=== PATIENT | female | born 1990 | race Hispanic/Latino ===

== ENCOUNTER 2018-01-16 04:56 | Inpatient (IN) | payer BC ==
[2018-01-15 11:07] LABS: RPR Titer ND
[2018-01-15 11:12] LABS: Urine Appearance CLOUDY; Urine Bilirubin NEGATIVE (NEG); Urine Blood NEGATIVE (NEG); Urine Color YELLOW; Urine Glucose NEGATIVE (NEG); Urine Protein NEGATIVE (NEG); Urine Specific Gravity 1.015 (1.005-1.030); Urine Urobilinogen 0.2 mg/dL (0.2-1.0)
[2018-01-15 11:34] LABS: Urine Bacteria >50 /HPF (<20); Urine Culture Reflex Order NOT NEEDED; Urine RBC <5 /HPF (NONE SEEN)
--- NOTE | 2018-01-15 11:41 | PREOPHP ---
Date of Admission: 01/16/2018 History Of Present Illness: Ms. Encarnacion is a 27-year-old female, 2, para 1-0-0-1, now at approximately 39+ weeks gestation. She has been followed by me during this with only si gnificant issue of prior section for failure to progress in labor. She will undergo repeat section because of suspected CPD and prior section. Past Medical History: Please see record. Family History: Please see record. Review of Systems: She reports no recent cough, cold, fever, or chills. She denies recent nausea, vomiting. She denies any breast lumps. She denies any bowel or bladder issues. Infant has been active. She denies any vaginal bleeding or spotting. Physical Examination: General: Reveals female, in no apparent distress. Neck: Supple without adenopathy or thyromegaly. Lungs: Clear. Cardiac: Regular rate and rhythm without murmurs. Breasts: Not examined. Abdomen: Shows 38 cm fundal height, vertex presentation. heart tones heard in the low abdomen . Vertex is above the pubic bone and easily displaced. Extremities: Trace to 1+ lower extremity edema bilaterally. Impression: A 39+ week , prior section, probable cephalopelvic disproportion. Plan: The patient will undergo repeat section. She has signed operative permit in my prese nce. IVETH/ANDREW Voice ID: [id number]
[2018-01-15 11:52] LABS: Absolute Lymphocytes (CBC) 1.6 K/uL (0.7-4.9); Absolute Monocytes 0.9 K/uL (0.1-1.3); Absolute Neutrophil 9.3 K/uL (1.8-8.0); Basophils % 0.4 % (0-1.3); Eosinophils % 1.4 % (0-4.4); Hematocrit 36.1 % (36.0-45.0); Lymphocytes % 13.6 % (15.3-44.8); MCH 30.3 pg (27.0-35.0); MCV 86.9 fL (80-100); MPV 9.7 fL (7.6-11.3); Monocytes % 7.4 % (3.3-12.3); RBC Red Blood Cell Count 4.15 M/uL (3.86-4.86)
[2018-01-15 23:06] LABS: RPR (Rapid Plasma Reagin) NON-REACT (NON-REACT)
[~2018-01-16 04:56] MED LIST: CEFAZOLIN/SWI 2gm 2 GM/20 ML SYR IV SCH
[2018-01-16] MEDS ORDERED: Ringers Lactate 1,000 ML IV PRN (05:50)
[2018-01-16] MEDS ORDERED: CEFAZOLIN 2 GM in NA CHLORIDE 0.9% 100 ML IVPB ONE (05:52)
[2018-01-16] MEDS ORDERED: Ringers Lactate 1,000 ML IV SCH (06:00)
[2018-01-16 06:36] VITALS: BMI 42.0
[2018-01-16] MEDS ORDERED: METOCLOPRAMIDE 10 MG/2mL INJ ONE (06:39)
[2018-01-16] MEDS ORDERED: NA CIT/CITRIC AC 30 ML ORAL UDC ONE (06:39)
[2018-01-16] MEDS ORDERED: CEFAZOLIN/SWI 2gm 2 GM/20 ML SYR ONE (06:40)
[2018-01-16] MEDS ORDERED: EPHEDRINE SULF 50 MG/ML SYR ONE (06:47)
[2018-01-16] MEDS ORDERED: MORPHINE SULFATE/PF 1 MG/ML (10 ML AMP) ONE (06:47)
[2018-01-16] MEDS ORDERED: NS 0.9% VIAL 10 ML ONE (06:48)
[2018-01-16] MEDS ORDERED: OXYTOCIN 10 UNIT/ML ML IV ONE ×2 (06:48→08:05)
[2018-01-16] MEDS ORDERED: NA CIT/CITRIC AC 30 ML ORAL UDC PO ONE (07:05)
[2018-01-16] MEDS ORDERED: CARBOPROST TROME 250 MCG/ML IM ONE (07:11)
[2018-01-16] MEDS ORDERED: METHYLERGONOVINE 0.2MG/ML AMP IM ONE (07:11)
[2018-01-16] MEDS ORDERED: Phenylephrine HCl 10 MG/ML 1 ML VIAL ONE (07:23)
[2018-01-16] MEDS ORDERED: NS 0.9% VIAL 20 ML ONE (07:23)
[2018-01-16] MEDS ORDERED: ONDANSETRON HCL 40 MG/20 ML VIAL ONE (07:34)
[2018-01-16] MEDS ORDERED: MIDAZOLAM HCL 2 MG/2 ML INJ ONE ×2 (07:40→07:54)
[2018-01-16] MEDS ORDERED: METOCLOPRAMIDE 10 MG/2mL INJ IV SCH (08:00)
[2018-01-16] MEDS ORDERED: KETOROLAC 30 MG/ML INJ IV PRN (08:28)
[2018-01-16] MEDS ORDERED: METHYLERGONOVINE 0.2 MG TAB PO PRN (08:28)
[2018-01-16] MEDS ORDERED: ONDANSETRON 4 MG (ODT) TAB PO PRN (08:28)
[2018-01-16] MEDS ORDERED: METHYLERGONOVINE 0.2MG/ML AMP IM PRN (08:28)
[2018-01-16] MEDS ORDERED: Oxycodone HCl/Acetaminophen 1 TAB TAB PO PRN (08:28)
[2018-01-16] MEDS ORDERED: CARBOPROST TROME 250 MCG/ML IM PRN (08:28)
--- NOTE | 2018-01-16 08:31 | P.BOP ---
Preoperative diagnosis: 39+ week , prior Postoperative diagnosis: same, viable male infant, transverse lie Primary procedure: , delivery male Disability Case Manager: Patty Cantrell Estimated blood loss: 1000 Specimen: placenta Anesthesia: Spinal Complications: None Drain(s): Urinary catheter Transferred to: Other (278) Condition: Good
[2018-01-16] MEDS ORDERED: OXYTOCIN/LR 20 UNIT/1,000 ML BAG IV SCH (09:00)
[2018-01-16] MEDS ORDERED: Ringers Lactate 2,000 ML IV ONE (09:21)
[2018-01-16] MEDS ORDERED: Ringers Lactate 1,000 ML IV ONE (18:06)
--- NOTE | 2018-01-16 18:24 | OP ---
Surgeon: Sami Pelletier MD Anesthesiologist: Carol Savage CRNA and Dr. Adrian Bangura. Preoperative Diagnosis: Prior section, unstable lie. Postoperative Diagnosis: Prior section, delivery of viable male infant in transverse lie. Procedures: Spinal block anesthesia, repeat section, delivery of viable male . Description Of Procedure: After satisfactory level of spinal block anesthesia, the patient was prepp ed and draped in the usual fashion for abdominal surgery with Atkins catheter in place. She received 2 g of Ancef for antibiotic prophylaxis. A Pfannenstiel skin incision was made. This was carried do wn to the fascia. The fascia was incised with a combination of sharp and blunt dissection. They wer e from the underlying rectus muscles. The peritoneum was identified and incised. A bladde r flap was low. A low-transverse uterine incision was made. noted to be transverse lie, head vertex to the patient's left side. This was directed to the incision with the aid of short handled Piper forceps. An 8-pound male was delivered, 8 and 9. Cord was clamped, cut, and the placed in a warmer. Cord blood was obtained. The placenta was manually removed. The uterus was then exteriorized. The uterus was closed in 2 layers utilizing Vicryl suture in a running locked fashion. A second layer used to imbricate the first. Mucosal edges were reapproximated utilizing a running suture of 3-0 Vicryl. The uterus was returned to the peritoneal cavity, which was cleaned o f amniotic fluid, debris, and blood clot. The rectus muscles were approximated in the midline with s imple sutures of 0 Vicryl to close the peritoneum. The fascia was closed with running suture of #1 V icryl from either margin to the middle. Subcutaneous tissue was closed with simple sutures of 3-0 Vi cryl, subdermal suture of 3-0 Vicryl, and a subcuticular suture of 4-0 Monocryl. Estimated total blo od loss was 1000 cc. The patient was taken to the recovery room in satisfactory condition with Atkins catheter in place and SCDs in place. Emergency Vehicle Operations Instructor Surgeon: Caren Harrison/ANDREW Voice ID: [id number] Report ID: [id number]
[2018-01-17] MEDS: Oxycodone HCl/Acetaminophen 1 TAB TAB PO PRN ×2 (05:15→11:47)
[2018-01-17 05:27] LABS: Absolute Lymphocytes (CBC) 1.9 K/uL (0.7-4.9); Absolute Monocytes 1.3 K/uL (0.1-1.3); Absolute Neutrophil 14.7 K/uL (1.8-8.0); Basophils % 0.2 % (0-1.3); Eosinophils % 0.5 % (0-4.4); Hematocrit 30.1 % (36.0-45.0); Lymphocytes % 10.7 % (15.3-44.8); MCH 29.9 pg (27.0-35.0); MCV 87.4 fL (80-100); MPV 9.1 fL (7.6-11.3); Monocytes % 7.1 % (3.3-12.3); RBC Red Blood Cell Count 3.45 M/uL (3.86-4.86)
--- NOTE | 2018-01-17 07:37 | P.PN ---
Date of Service: 01/17/18 S-No complaints O-Afeb, vs stable, 18K wbc on p/o cbc, 06/10 h/h. Bandage dry, abdomen not distended A-Satisfactory, P- ambulate, advance diet, IV and story, d/c
[2018-01-17] MEDS ORDERED: Ringers Lactate 2,000 ML IV ONE (08:09)
[2018-01-17] MEDS: IBUPROFEN 400 MG TAB PO PRN (16:11)
[2018-01-18] MEDS: IBUPROFEN 400 MG TAB PO PRN (07:58)
[2018-01-18 08:53] VITALS: BP 130/69; TEMP 99.1
--- NOTE | 2018-01-20 09:50 | DS ---
Date of Discharge: 01/18/2018 Hospital Discharge Diagnosis: Prior section, unstable/transverse lie. Repeat sect ion delivery of viable male . Complications: None. Procedures: Spinal block anesthesia. Repeat section. Delivery of viable male infant in tr ansverse lie. Hospital Course: The patient is a 27-year-old, female, 2, para 1-0-0-1, at approxim ately 39+ weeks gestation, admitted for repeat section with unstable lie and noted to be tra nsverse at time of surgery. She delivered 8 pounds 11 ounce male infant, 8 and 9, by repeat ce sarean section with spinal block anesthesia. She was dismissed on the second postoperative day, ambu latory on a select diet with routine post section activity restrictions. Lab work included an admission hemoglobin and hematocrit of 12.6 and 36.1, dismissal of 10.3 and 30.1. She had a nonre active RPR. She is O-positive blood type. Urine specimen was suspicious for a bladder infection, bu t she did receive prophylaxis at the time of surgery with Ancef, which should be sufficient to treat possible low-grade infection. We will await results of final culture. She was dismissed to continue taking her iron and vitamins with a prescription for Tylenol No. 3, #20 for pain relief, to be seen back in my office in 1 week for incision check with usual post section activity res trictions. IVETH/ANDREW Voice ID: [id number] Report ID: [id number]
== END 2018-01-18 11:00 | disposition home or self-care (01) | DRG 766 ==
LOC: 2ND-WC 04:56
PROVIDERS: ADMIT Specialist; ATTEND Specialist
PROC: 10D00Z1 Extraction of Products of Conception, Low, Open Approach (ICD-10-PCS; principal; 2018-01-16 07:30)
DX: O34.211 Maternal care for low transverse scar from previous cesarean delivery (principal); O32.2XX0 Maternal care for transverse and oblique lie, not applicable or unspecified; Z3A.39 39 weeks gestation of pregnancy; Z37.0 Single live birth
CPT/HCPCS: 36415; 81001; 85025; 86592; 86850; 86900; 86901; 87086; 87088; 88307; J0690; J2210; J2250; J2370; J2405; J2590; J2765

== ENCOUNTER 2023-01-18 22:30 | Emergency (ER) | payer OTHER ==
--- OUTSIDE RECORDS SUMMARY | 2023-01-18 22:38 | XMS REPORT | Continuity of Care Document ---
:1990 Author Organization [facility] t Address [address] [place] [address] Care Team Providers Name Role Phone JAVIER LOPEZ JR Primary Care Physician Unavailable HAILEY DEMPSEY Attending Clinician Unavailable Pob, Adc Lab Main Attending Clinician Unavailable Hailey Dempsey MD Attending Clinician Doctor Unassigned, [place] Attending Clinician Unavailable STEVEN COLLAZO Attending Clinician Unavailable Steven Collazo DO Attending Clinician Scar Acosta MD Attending Clinician SCAR ACOSTA Attending Clinician Unavailable RAJIV PERRIN Attending Clinician Unavailable RAJIV PERRIN Attending Clinician Unavailable Payers Payer Name Policy Type Policy Number Effective Date Expiration Date S ource [employer] [id number] 2022 00:00:00 [facility] - [id number] 2021 OUT OF STATE 00:00:00 Problems Condition Condition Condition Status Onset Resolution Last Treating Co mments Source Name Details Category Date Date Treatment Clinician Date Morbid Morbid Disease Active Univers obesity obesity 3-10 [place] mass index 00 [place] dical of of Branch 40.0-49.9 40.0-49.9 Hemorrhoid Hemorrhoid Disease Active U nivers s s 8-09 ity of 00:00: [place] 00 Medical Branch Irritable Irritable Disease Active Uni vers bowel bowel 8-09 ity of syndrome syndrome 00:00: [place] with with 00 Medical constipati constipati Br anch on on Seasonal Seasonal Disease Active Unive rs allergies allergies 03-20 ity of 00:00: [place] 00 Medical [place] Allergies, Adverse Reactions, Alerts Allergy Allergy Status Severity Reaction(s) Onset Inactive Treating Comm ents Source Name Type Date Date Clinician NO KNOWN Drug Active [facility] ALLERGIE Class ity of S [facility] Social History Social Habit Start Date Stop Date Quantity Comments Source ASSERTION [facility] Exposure to 2022-10-09 2022-10-19 Not sure [facility] SARS-CoV-2 00:00:00 14:17:00 [facility] (event) [place] Alcohol intake 2022-10-19 2022-10-19 Ex-drinker [facility] 00:00:00 00:00:00 (finding) [facility] Tobacco use and 2022-03-20 2022-03-20 Smokeless tobacco Un iversity of exposure 00:00:00 00:00:00 non-user [facility] Sex Ass[birth year] At [birth year] Universit y of 00:00:00 00:00:00 [facility] Smoking Status Start Date Stop Date Source Never smoked tobacco [facility] Medications Ordered Filled Start Stop Current Ordering Indication Dosage Frequency Signature Comments Components Source Medication Medication Date Date Medication? Clinician (SIG) Name Name benzonatate 2021-08 Yes [id number] 100mg Take 1 Univers 100 mg 2-19 capsule by ity of capsule 00:00: mouth 3 00 (three) Medical times Branch daily as needed for Cough. methylPREDN 2021-08 Yes [id number] Take by Univers ISolone 2-19 mouth ity of (MEDROL, 00:00: SEE-INSTRU Daniel as CHIOMA,) 4 mg 00 CTIONS. Medica l tablets follow Branch package directions benzonatate 2021-08 Yes [id number] 100mg Take 1 Univers 100 mg 2-19 capsule by ity of capsule 00:00: mouth 3 00 (three) Medical times Branch daily as needed for Cough. methylPREDN 2021-08 Yes [id number] Take by Univers ISolone 2-19 mouth ity of (MEDROL, 00:00: SEE-INSTRU Daniel as CHIOMA,) 4 mg 00 CTIONS. Medica l tablets follow Branch package directions benzonatate 2021-08 Yes [id number] 100mg Take 1 Univers 100 mg 2-19 capsule by ity of capsule 00:00: mouth 3 [place] 00 (three) Medical times Branch daily as needed for Cough. methylPREDN 2021-08 Yes [id number] Take by Univers ISolone 2-19 mouth ity of (MEDROL, 00:00: SEE-INSTRU Daniel as CHIOMA,) 4 mg 00 CTIONS. Medica l tablets follow Branch package directions benzonatate 2021-08 Yes [id number] 100mg Take 1 Univers 100 mg 2-19 capsule by ity of capsule 00:00: mouth 3 [place] 00 (three) Medical times Branch daily as needed for Cough. methylPREDN 2021-08 Yes [id number] Take by Univers ISolone 2-19 mouth ity of (MEDROL, 00:00: SEE-INSTRU Daniel as CHIOMA,) 4 mg 00 CTIONS. Medica l tablets follow Branch package directions benzonatate 2021-08 Yes [id number] 100mg Take 1 Univers 100 mg 2-19 capsule by ity of capsule 00:00: mouth 3 [place] 00 (three) Medical times Branch daily as needed for Cough. methylPREDN 2021-08 Yes [id number] Take by Univers ISolone 2-19 mouth ity of (MEDROL, 00:00: SEE-INSTRU Daniel as CHIOMA,) 4 mg 00 CTIONS. Medica l tablets follow Branch package directions benzonatate 2021-08 Yes [id number] 100mg Take 1 Univers 100 mg 2-19 capsule by ity of capsule 00:00: mouth 3 [place] 00 (three) Medical times Branch daily as needed for Cough. methylPREDN 2021-08 Yes [id number] Take by Univers ISolone 2-19 mouth ity of (MEDROL, 00:00: SEE-INSTRU Daniel as CHIOMA,) 4 mg 00 CTIONS. Medica l tablets follow Branch package directions cetirizine Yes 10mg Take 1 Unive rs 10 mg 6-08 tablet by ity of tablet 00:00: mouth in [place] 00 the Medical morning. Branch cetirizine 2021-0 Yes 10mg Take 1 Unive rs 10 mg 6-08 tablet by ity of tablet 00:00: mouth in [place] 00 the Medical morning. Branch cetirizine 0 Yes 10mg Take 1 Unive rs 10 mg 6-08 tablet by ity of tablet 00:00: mouth in [place] 00 the Medical morning. Branch cetirizine 2021-0 Yes 10mg Take 10 mg U nivers 10 mg 6-08 by mouth ity of tablet 00:00: in the [place] morning. Medical Branch cetirizine 2021-0 Yes 10mg Take 10 mg U nivers 10 mg 6-08 by mouth ity of tablet 00:00: in the [place] morning. Medical Branch cetirizine 2021-0 Yes 10mg Take 10 mg U nivers 10 mg 6-08 by mouth ity of tablet 00:00: in the [place] morning. Medical Branch cetirizine 2021-0 Yes 10mg Take 10 mg U nivers 10 mg 6-08 by mouth ity of tablet 00:00: in the [place] morning. Medical Branch cetirizine 2021-0 Yes 10mg Take 10 mg U nivers 10 mg 6-08 by mouth ity of tablet 00:00: in the [place] morning. Medical Branch cetirizine 2021-0 Yes 10mg Take 1 Unive rs 10 mg 6-08 tablet by ity of tablet 00:00: mouth in [place] 00 the Medical morning. Branch Vital Signs Vital Name Observation Time Observation Value Comments Source Systolic blood 2022-10-19 21:03:00 106 mm[Hg] Univer sity of pressure [facility] Diastolic blood 2022-10-19 21:03:00 72 mm[Hg] Unive rsity of pressure [facility] Heart rate 2022-10-19 21:03:00 74 /min [facility] Body temperature 2022-10-19 21:03:00 36.78 Nery [facility] Respiratory rate 2022-10-19 21:03:00 18 /min [facility] Body height 2022-10-19 21:03:[address] [facility] Body weight 2022-10-19 21:03:[address] [facility] BMI 2022-10-19 21:03:00 40.47 kg/m2 [facility] Body temperature 2022-07-30 08:15:00 37.5 Nery [facility] Respiratory rate 2022-07-30 08:15:00 18 /min Univ ersity of [place] [facility] [place] Body height 2022-07-30 08:15:00 154.9 cm Universi ty of [place] [facility] [place] Body weight 2022-07-30 08:15:00 104.327 kg Universi ty of [place] [facility] BMI 2022-07-30 08:15:00 43.46 kg/m2 Universi ty of [facility] Oxygen saturation in 2022-07-30 08:15:00 100 /min University of Arterial blood by [facility] Pulse oximetry Branch Systolic blood 2022-07-30 08:15:00 132 mm[Hg] Univer sity of pressure [place] [facility] [place] Diastolic blood 2022-07-30 08:15:00 81 mm[Hg] Unive rsity of pressure [facility] Heart rate 2022-07-30 08:15:00 84 /min Universi ty of [place] [facility] [place] Systolic blood 2022-03-20 19:03:00 113 mm[Hg] Univer sity of pressure [place] [facility] [place] Diastolic blood 2022-03-20 19:03:00 71 mm[Hg] Unive rsity of pressure [place] [facility] [place] Heart rate 2022-03-20 19:03:00 77 /min Universi ty of [place] [facility] [place] Respiratory rate 2022-03-20 19:03:00 17 /min [facility] [place] [facility] [place] Body height 2022-03-20 19:03:00 157.5 cm Universi ty of [place] [facility] [place] Body weight 2022-03-20 19:03:00 101.209 kg Universi ty of [place] [facility] [place] BMI 2022-03-20 19:03:00 40.81 kg/m2 Universi ty of [place] [facility] [place] Oxygen saturation in 2022-03-20 19:03:00 98 /min University of Arterial blood by [facility] [place] [facility] Pulse oximetry Branch Procedures Procedure Date / Time Performing Clinician Source Performed US OB TRANSVAGINAL 2022-10-20 03:39:41 Hailey Dempsey y [facility] ASSIGNMENT OF BENEFITS 2022-10-19 20:20:57 Doctor Unassigned, No [facility] POCT TEST 2022-10-19 00:00:00 AdHailey marquis [facility] ty [facility] RAPID STREP SCREEN FOR 2022-07-30 08:24:00 Steven Collazo [facility] [place] GROUP A Medical Branch RAPID INFLUENZA A/B 2022-07-30 08:24:00 Steven Collazo ty of [facility] COVID-19 (ID NOW RAPID 2022-07-30 08:24:00 Steven [facility] [place] [place] TEST[facility]) Medical Branch NOTICE OF PRIVACY 2022-07-30 08:12:45 Doctor Unassigned, No Univ [facility] PRACTICES Name Medical Branch CONSENT/REFUSAL FOR 2022-07-30 08:12:02 Doctor Unassigned, No [facility] Name [facility] EXTERNAL PROVIDER 2022-03-21 05:01:00 Doctor Unassigned, No Univ [facility] RECORDS Name [facility] Encounters Start End Encounter Admission Attending Care Care Encounter Source Date/Time Date/Time Type Type Clinicians Facility Department ID 2023-01-17 2023-01-17 Outpatient R AD, [facility] [id number] Univers 15:45:00 15:45:00 HAILEY aaron [facility] 2022-11-09 2022-11-09 Employee Relations Administrator Carlos, Adc Lab Main [facility] 1.2.8 [id number] [id number] Univers 17:00:00 17:15:00 Visit AdHailey marquis 350.1.13.10 ity [facility] 4.2.7.2.686 [place] [id number] [facility] [address] [facility] 2022-11-09 2022-11-09 Outpatient R AD, [facility] [id number] Univers 17:00:00 17:00:00 HAILEY agnieszka [facility] 2022-10-22 2022-10-22 Telephone Adum, [facility] [id number] Univers 00:00:00 00:00:00 [id number].2.[place] [id number] Ut dical [facility] [address] [facility] 2022-10-19 2022-10-19 Employee Relations Administrator Carlos, Adc Lab Main [facility] 1.2.8 40.114 [id number] Univers 16:45:00 17:00:00 Visit Adum, Hailey IVERSON [id number] ity of [place] 4[place]2.7.2.[place] [id number] Me dical NAL [address] [facility] 2022-10-19 2022-10-19 Outpatient [facility] [id number] Univers 14:30:00 16:28:02 HAILEY itbrennan [facility] 2022-10-19 2022-10-19 [facility] [id number] Univers 14:30:00 16:28:02 Hailey SLAUGHTERCHRIS [id number] ity of Visit [place] 4[place]2.7.2.686 [place] [id number] Ut dical NAL [address] [facility] 2022-10-19 2022-10-19 Orders Doctor HENRIK [id number] Univers 00:00:00 00:00:00 Only Unassigned, RILEY [id number] ity of [place] [facility] 4.2.7.2.686 Daniel as [id number] [address] 2022-07-30 2022-07-30 Emergency [facility] [id number] Univers 02:24:00 03:43:00 STEVEN aaron [facility] 2022-07-30 2022-07-30 [facility] [id number] Univers 02:24:00 03:43:00 Steven IVERSON 350.1.13.10 i ty of [place]2.7.2.[place] [id number] [facility] [address] [place] 2022-03-21 2022-03-21 Orders Doctor HENRIK 1.2.840.114 [id number] Univers 00:00:00 00:00:00 Only Unassigned, RILEY [id number] ity of [place] [facility] 4.2.7.2.686 Daniel as [id number] [facility] [address] [place] 2022-03-20 2022-03-20 Office Dave [facility] [id number] [facility] 14:00:00 14:44:14 Visit Scar IVERSON 350.1.13.10 i ty [facility] 4.2.7.2.686 Danielradha hobbs ASAEL [id number] Ut dical [address] 2022-03-20 2022-03-20 [facility] [id number] Univers 14:00:00 14:44:14 SCAR [facility] 2022-03-20 2022-03-20 [facility] [id number] [facility] 14:00:00 14:00:00 SCAR [facility] 2022-02-19 2022-02-19 Outpatient R RAJIV PERRIN [facility] B [id number] [facility] 16:30:00 16:30:00 RAJIV PERRIN [facility] Results Test Description Test Time Test Comments Results Result Comments Source POCT TEST 2022-10-19 22:24:00 Test Item Value Reference Range Interpretation Comme nts POCT PREG (test code = 1605) Positive On board controls acceptable with C Line (test code = 3574) Yes POCT PREG LOT # (test code = 3575) POCT PREG TEST DATE (test code = 3576) [facility]
--- NOTE | 2023-01-19 01:15 | ER ---
Nurse's Notes [facility] Name: Silke Encarnacion Age: 32 yrs Sex: Female : 1990 Arrival Date: 01/18/2023 Time: 22:30 Bed 9 Private MD: Bernardo Herron Diagnosis: Chest pain, unspecified Presentation: 01/18 22:35 Chief complaint: Patient states: left side chest pain of 4,onset 1300 today while at 1 work. Patient stated did have some chest discomfort last week, resolved and came back today. Patient stated was diagnosed with anxiety a few days ago per Dr. Herron and was started on an anxiety medication. Coronavirus screen: Vaccine status: Patient reports receiving the 2nd dose of the covid vaccine. [facility] Client denies travel out of the [place] in the last 14 days. At this time, the client does not indicate any symptoms associated with coronavirus-19. Ebola Screen: Patient negative for fever greater than or equal to 101.5 degrees Fahrenheit, and additional compatible Ebola Virus Disease symptoms. Initial Sepsis Screen: Does the patient meet any 2 criteria? No. Patient's initial sepsis screen is negative. Does the patient have a suspected source of infection? No. Patient's initial sepsis screen is negative. Risk Assessment: Do you want to hurt yourself or someone else? Patient reports no desire to harm self or others. 22:35 Method Of Arrival: Ambulatory pf1 22:35 Acuity: EUGENIA 3 pf1 Historical: - Allergies: 22:50 almonds; pf1 22:50 Wheat/glutens; pf1 - Immunization history:: Adult Immunizations up to date. - Social history:: Smoking status: Patient denies any tobacco usage or history of. Patient/guardian denies using alcohol, street drugs. Screenin:51 [facility] ED Fall Risk Assessment (Adult) History of falling in the last 3 months, pf1 including since admission No falls in past 3 months (0 pts) Confusion or Disorientation No (0 pts) Intoxicated or Sedated No (0 pts) Impaired Gait No (0 pts) Mobility Assist Device Used No (0 pt) Altered Elimination No (0 pt) Score/Fall Risk Level 0 - 2 = Low Risk Oriented to surroundings, Maintained a safe environment, Educated pt \T\ family on fall prevention, incl call for assistance when getting out of bed, Assessed \T\ reinforced patient's understanding of fall precautions, Provided non-skid footwear, Hourly rounding (assess needs \T\ fall precautionary measures) done, Used ambulatory aids as needed (educated on \T\ assisted with), Used gait belt as appropriate. 22:51 Abuse screen: Denies threats or abuse. Nutritional screening: No deficits noted. pf1 Tuberculosis screening: No symptoms or risk factors identified. Assessment: 22:51 General: Appears in no apparent distress. comfortable, well groomed, well developed, pf1 Behavior is calm, cooperative, appropriate for age, quiet. 22:51 Pain: Complains of pain in left side chest pain. Neuro: No deficits noted. Level of pf1 Consciousness is awake, alert, obeys commands, Oriented to person, place, time, situation. Cardiovascular: Reports chest pain, Capillary refill < 3 seconds Patient's skin is warm and dry. Respiratory: No deficits noted. Airway is patent Respiratory effort is even, unlabored, Respiratory pattern is regular, symmetrical. GI: No deficits noted. No signs and/or symptoms were reported involving the gastrointestinal system. : No deficits noted. No signs and/or symptoms were reported regarding the genitourinary system. EENT: No deficits noted. No signs and/or symptoms were reported regarding the EENT system. Derm: No deficits noted. No signs and/or symptoms reported regarding the dermatologic system. 01/19 00:00 Reassessment: Patient appears in no apparent distress at this time. Patient and/or pf1 family updated on plan of care and expected duration. Pain level reassessed. Patient is alert, oriented x 3, equal unlabored respirations, skin warm/dry/pink. Patient states symptoms have improved. 01:00 Reassessment: Patient appears in no apparent distress at this time. Patient and/or pf1 family updated on plan of care and expected duration. Pain level reassessed. Patient is alert, oriented x 3, equal unlabored respirations, skin warm/dry/pink. Patient states feeling better. Patient states symptoms have improved. Vital Signs: 01/18 22:35 BP 127 / 87; Pulse 74; Resp 18; Temp 96.6; Pulse Ox 100% on R/A; Weight 97.52 kg; pf1 Height 5 ft. 2 in. ; Pain 11/19; 01/19 01:50 BP 114 / 78; Pulse 76; Resp 18; Pulse Ox 100% ; pf1 01/18 22:35 Body Mass Index 39.32 (97.52 kg, 157.48 cm) pf1 01/18 22:35 Pain Scale: Adult pf1 ED Course: 01/18 22:32 Patient arrived in ED. es 22:33 Bernardo Herron MD is Private Physician. es 22:35 Serafin Burrows MD is Attending Physician. bs3 22:48 Triage completed. pf1 22:51 Patient has correct armband on for positive identification. Bed in low position. Call pf1 light in reach. 22:51 Arm band placed on right wrist. pf1 22:55 No provider procedures requiring assistance completed. pf1 23:16 Chest Single View XRAY In Process Unspecified. EDTX 01/19 01:15 Bernardo Herron MD is Referral Physician. bs3 01:58 Patient did not have IV access during this emergency room visit. pf1 Administered Medications: No medications were administered Medication: 01:50 VIS not applicable for this client. pf1 Outcome: 01:15 Discharge ordered by . bs3 01:30 Discharged to home ambulatory. pf1 01:30 Condition: improved 01:30 Discharge instructions given to patient, Instructed on discharge instructions, follow up and referral plans. Demonstrated understanding of instructions, follow-up care. 01:58 Patient left the ED. pf1 Signatures: Dispatcher [employer] [facility] Adriana Estrella Brandon, MD MD bs3 Katlyn Denney RN RN pf1
--- NOTE | 2023-01-19 01:15 | EDPHYS ---
Physician Documentation [facility] Name: Silke Encarnacion Age: 32 yrs Sex: Female : 1990 Arrival Date: 01/18/2023 Time: 22:30 Bed 9 Private MD: Bernardo Herron ED Physician Serafin Burrows HPI: 01/18 22:48 This 32 yrs old Female presents to ER via Ambulatory with complaints of Chest bs3 discomfort, tingling. 22:48 32-year-old female recently diagnosed with anxiety presents with left-sided chest bs3 discomfort she notes a bubble like air sensation on the left side of her chest that is intermittent coming and going lasting seconds since yesterday she has no associated symptoms with this she denies any shortness of breath any nausea vomiting or sweating nothing seems to make it better or worse it is not a ripping or tearing discomfort it does not radiate anywhere nothing seems to bring it on she was recently started on anxiety medicine several days ago by her psychiatrist. No leg swelling no recent travel no recent immobilization no history of DVT or PE. Historical: - Allergies: 22:50 almonds; pf1 22:50 Wheat/glutens; pf1 - Immunization history:: Adult Immunizations up to date. - Social history:: Smoking status: Patient denies any tobacco usage or history of. Patient/guardian denies using alcohol, street drugs. ROS: 22:48 Constitutional: Negative for fever, chills bs3 22:48 All other systems are negative. Exam: 22:48 Constitutional: This is a well developed, well nourished patient who is awake, alert, bs3 and in no acute distress. Head/Face: Normocephalic, atraumatic. Eyes: Pupils equal round and reactive to light, extra-ocular motions intact. Lids and lashes normal. ENT: mmm, no posterior phyarngeal erythema Neck: Trachea midline, no thyromegaly, no neck stiffness Chest/axilla: Normal chest wall appearance and motion. Nontender with no deformity. No lesions are appreciated. Cardiovascular: Regular rate and rhythm with a normal S1 and S2. symmetric pulses in upper extremities Respiratory: Lungs have equal breath sounds bilaterally, clear to auscultation, no respiratory distress Abdomen/GI: Soft, non-tender, no rebound or guarding Skin: Warm, dry with normal turgor. Normal color with no rashes, no lesions, and no evidence of cellulitis. MS/ Extremity: Pulses equal, no cyanosis. Neurovascular intact. Full, normal range of motion. Neuro: Awake and alert, GCS 15, oriented to person, place, time, and situation. Cranial nerves II-XII grossly intact. Motor strength 5/5 in all extremities. Sensory grossly intact. Psych: Awake, alert, with orientation to person, place and time. Behavior, mood, and affect are within normal limits. 22:48 Normal sinus rhythm at [address] elevations or depressions QTc 422 Vital Signs: 22:35 BP 127 / 87; Pulse 74; Resp 18; Temp 96.6; Pulse Ox 100% on R/A; Weight 97.52 kg; pf1 Height 5 ft. 2 in. ; Pain 11/19; 01/19 01:50 BP 114 / 78; Pulse 76; Resp 18; Pulse Ox 100% ; pf1 01/18 22:35 Body Mass Index 39.32 (97.52 kg, 157.48 cm) pf1 01/18 22:35 Pain Scale: Adult pf1 MDM: 01/18 22:34 Patient medically screened. bs3 22:48 Data reviewed: vital signs, nurses notes. ED course: 32-year-old female with atypical bs3 chest pain is lasting seconds at a time it is not consistent with acute coronary syndrome she is PE RC negative not consistent with an aortic dissection will rule out tiny pneumothorax it could be GI related she feels a bubble like sensation advised outpatient follow-up with primary care this coming week if she still feels the symptoms it may also be related to anxiety and her recent new medication. 01/19 00:53 ED course: X-ray negative for acute pathology as interpreted by myself. ED course: bs3 Given normal EKG and chest x-ray advised outpatient follow-up. 01:13 ED course: pt given strict return prec. bs3 01/18 22:34 Order name: Chest Single View XRAY bs3 01/18 22:34 Order name: EKG - Nurse/Tech; Complete Time: 07:26 bs3 Administered Medications: No medications were administered Disposition Summary: 01/19/23 01:15 Discharge Ordered Location: Home bs3 Problem: new bs3 Symptoms: have improved bs3 Condition: Stable bs3 Diagnosis - Chest pain, unspecified bs3 Followup: bs3 - With: Bernardo Herron MD - When: 2 - 3 days - Reason: Re-evaluation by your physician Discharge Instructions: - Discharge Summary Sheet bs3 - Nonspecific Chest Pain, Adult bs3 Forms: - Medication Reconciliation Form bs3 - Thank You Letter bs3 - Antibiotic Education bs3 - Prescription Opioid Use bs3 Signatures: Dispatcher [employer] [facility] Serafin Burrows MD MD bs3 Katlyn Denney RN RN pf1
[2023-01-19 02:41] VITALS: BP 127/87; TEMP 96.6; O2SAT 100
--- NOTE | 2023-01-20 18:34 | RAD REPORT ---
EXAM DESCRIPTION: RAD - Chest Single View - 01/18/2023 11:14 pm Chest Single View CLINICAL HISTORY: 32 years Female CHEST PAIN COMPARISON: None TECHNIQUE: AP view of the chest was obtained. FINDINGS: Cardiac size is within normal limits. Central vessels are not increased. No effusions bilaterally. Right infrahilar airspace opacity. No abnormal airspace opacity on left. No pneumothorax. IMPRESSION: Right infrahilar infiltrate and atelectatic change. Electronically signed by: Iris King MD 01/18/2023 11:49 PM CDT Due to temporary technical issues with the PACS/Fluency reporting system, reports are being signed by the in house radiologists without review as a courtesy to insure prompt reporting. The interpreting radiologist is fully responsible for the content of the report.
--- NOTE | 2023-01-21 12:09 | EKG ---
Test Date: 2023-01-18 Test Time: 22:41:34 [employer]urb[employer] Technician: RONNA MEASUREMENT RESULTS: Intervals: Rate: 69 KS: 156 QRSD: 92 QT: 394 QTc: 422 [place]: P: 65 KS: 156 QRS: 70 T: 34 INTERPRETIVE STATEMENTS: Normal sinus rhythm Normal ECG No previous ECG available for comparison Electronically Signed On 01-21-23 12:01:19 CDT by Clifford Franklin
== END 2023-01-19 01:58 | disposition home or self-care (01) ==
LOC: ER 22:30
DX: R07.89 Other chest pain (principal); Z91.018 Allergy to other foods
CPT/HCPCS: 71045; 93005; 99283